=== PATIENT | male | born 1990 | race Caucasian/White ===

== ENCOUNTER 2018-01-17 01:23 | Emergency (ER) | payer BC ==
[2018-01-17] MEDS ORDERED: 0.9 % SODIUM CHLORIDE 10 ML DISP.SYRIN. IV (02:15)
[2018-01-17] MEDS: IV NORMAL SALINE 1000ML BAG 1,000 ML IV (02:19)
[2018-01-17 02:28] LABS: ADD MAN DIFF? NO
[2018-01-17] MEDS ORDERED: CONTRAST GIVEN MC (02:30)
[2018-01-17 02:34] LABS: BASO # 0.1 x10^3/uL (0.0-0.2); BASO % 1 % (0-3); BILIRUBIN,URINE NEGATIVE (NEG); CLARITY,URINE CLEAR; COLOR,URINE YELLOW; EOS % 10 % (0-3); GLUCOSE,URINE NEGATIVE (NEG); HEMATOCRIT 39.4 % (39.0-53.0); HEMOGLOBIN 13.9 g/dL (13.0-17.5); LYMPH % 29 % (24-48); MEAN CORPUSCULAR HEMOGLOBIN 32 pg (25-35); MEAN CORPUSCULAR HGB CONC 35 g/dL (31-37); MEAN CORPUSCULAR VOLUME 89 fL (79-100); MONO # 0.7 x10^3/uL (0.0-1.1); MONO % 7 % (0-9); NEUT # 5.4 x10^3uL (1.8-7.7); NEUT % 53 % (31-73); NITRITE,URINE NEGATIVE (NEG); PLATELET COUNT 358 x10^3/uL (140-400); PROTEIN,URINE NEGATIVE (NEG-TRACE); RED BLOOD COUNT 4.41 x10^6/uL (4.30-5.70); RED CELL DISTRIBUTION WIDTH 13.1 % (11.5-14.5); UROBILINOGEN,URINE 0.2 mg/dL (0.2 mg/dL); WHITE BLOOD COUNT 10.2 x10^3/uL (4.0-11.0)
[2018-01-17 02:45] LABS: ANION GAP 13 (6-14); BLOOD UREA NITROGEN 12 mg/dL (8-26); CALCIUM 9.3 mg/dL (8.5-10.1); CARBON DIOXIDE 26 mmol/L (21-32); CHLORIDE 101 mmol/L (98-107); GFR 88.3; GLUCOSE 120 mg/dL (70-99); POTASSIUM 3.5 mmol/L (3.5-5.1); SODIUM 140 mmol/L (136-145)
[2018-01-17 02:48] LABS: BACTERIA,URINE 0 /HPF (0-FEW); RBC,URINE 0 /HPF (0-2); SQUAMOUS EPITHELIAL CELL,UR FEW /LPF; WBC,URINE 0 /HPF (0-4)
[2018-01-17] MEDS ORDERED: MORPHINE SULFATE 4 MG/ML DISP.SYRIN. (02:48)
[2018-01-17 02:51] LABS: ALBUMIN 4.5 g/dL (3.4-5.0); ALK PHOS 87 U/L (46-116); ALT (SGPT) 20 U/L (16-63); AST (SGOT) 18 U/L (15-37); DIRECT BILIRUBIN 0.1 mg/dL (0.0-0.2); TOTAL BILIRUBIN 0.5 mg/dL (0.2-1.0)
[2018-01-17] MEDS: MORPHINE SULFATE 4 MG/ML DISP.SYRIN. IV (02:53)
[2018-01-17] MEDS: IOHEXOL 300 MG/ML 100ML VIAL. IV (03:04)
== END 2018-01-17 03:57 | disposition home or self-care (01) ==
LOC: ER 01:23
DX: K92.1 Melena (principal); R10.31 Right lower quadrant pain; R11.2 Nausea with vomiting, unspecified; R19.7 Diarrhea, unspecified; K21.9 Gastro-esophageal reflux disease without esophagitis; E03.9 Hypothyroidism, unspecified
CPT/HCPCS: 36415; 74177; 80048; 80076; 81001; 85025; 96361; 96374; 99285-25; J2270; J7030; Q9967